=== PATIENT | female | born 1995 | race Caucasian/White ===

== ENCOUNTER 2017-05-30 08:02 | Emergency (ER) | payer MEDICAID, OTHER ==
[~2017-05-30] VITALS: Ht 162.6 cm; Wt 18.1 kg
--- NOTE | 2017-05-30 08:10 | NUR ---
A/OX4, C/O SUPRAPUBIC AREA PAIN, DYSURIA, URGENCY X LAST NIGHT. VSS NAD RR EVEN AND UNLABORED. PENDING ER MD EVALUATION
[2017-05-30 09:03] LABS: APPEARANCE,URINE SL CLOUDY (CLEAR); BILIRUBIN,URINE NEGATIVE (NEGATIVE); BLOOD, URINE 2+ Ery/uL (NEGATIVE); COLOR,URINE YELLOW (YELLOW); KETONES,URINE NEGATIVE (NEGATIVE); LEUKOCYTE ESTERASE ,URINE 1+ (NEGATIVE); NITRITE, URINE NEGATIVE (NEGATIVE); PROTEIN,URINE NEGATIVE (NEGATIVE); UGLUCOSE NEGATIVE (NEGATIVE); UROBILINOGEN,URINE 0.2 EU/dL (0.2)
--- NOTE | 2017-05-30 09:15 | NUR ---
PELVIC EXAM PERFORMED BY
[2017-05-30 09:25] LABS: BACTERIA,URINE Few /HPF (None Seen); SQUAMOUS EPITHELIAL CELL,UR Moderate /HPF (None Seen); WBC,URINE 21-50 /HPF (0-3)
[2017-05-30] MEDS ORDERED: LIDOCAINE /MPF 1% VIAL 5 ML VIAL ONE (10:18)
[2017-05-30] MEDS ORDERED: AZITHROMYCIN 250 MG TABLET ONE (10:18)
[2017-05-30] MEDS ORDERED: CEFTRIAXONE 1 G VIAL ONE (10:18)
--- NOTE | 2017-05-30 10:28 | NUR ---
Patient discharged to home in stable condition. Written and verbal after care instructions given. Patient verbalizes understanding of instruction.
[2017-05-30 10:30] VITALS: BP 131/76
[2017-05-30] MEDS ORDERED: AZITHROMYCIN 250 MG TABLET PO ONE (10:30)
[2017-05-30] MEDS ORDERED: CEFTRIAXONE 1 G VIAL IM ONE (10:30)
== END 2017-05-30 10:31 | disposition home or self-care (01) ==
LOC: ER 08:05
DX: R30.0 Dysuria (principal); N89.8 Other specified noninflammatory disorders of vagina
CPT/HCPCS: 81000-TC; 84703-TC; 87086-TC; 87186-TC; 87210-TC; 87491; 87591; A4606; J0696; J3490; Z7610

== ENCOUNTER 2017-06-12 19:54 | Emergency (ER) | payer OTHER ==
[~2017-06-12] VITALS: Ht 162.6 cm; Wt 70.3 kg
--- NOTE | 2017-06-12 20:02 | NUR ---
bb ems to er after a syncopal event during plasma donation
--- NOTE | 2017-06-12 20:03 | NUR ---
Kemal ACNP aware - report given
--- NOTE | 2017-06-12 20:03 | NUR ---
placed to ER 13
[2017-06-12 20:28] LABS: BASOPHILS # (AUTO) 0.1 /CMM (0.0-0.2); BASOPHILS % (AUTO) 0.5 % (0.0-2.0); EOSINOPHILS # (AUTO) 0.1 /CMM (0.0-0.7); EOSINOPHILS % (AUTO) 0.5 % (0.0-6.0); HEMATOCRIT 40 % (33-45); LYMPHOCYTES # (AUTO) 1.7 /CMM (0.8-4.8); LYMPHOCYTES % (AUTO) 10.8 % (20.0-44.0); MEAN CORPUSCULAR HEMOGLOBIN 30 PG (26.0-33.0); MEAN CORPUSCULAR HGB CONC 35 g/dl (31.0-36.0); MEAN CORPUSCULAR VOLUME 86 fL (82-100); MONOCYTES # (AUTO) 0.7 /CMM (0.1-1.30); MONOCYTES % (AUTO) 4.2 % (2.0-12.0); NEUTROPHILS # (AUTO) 13.3 /CMM (1.8-8.9); PLATELET COUNT (AUTO) 305 /CMM (150-450); RDW COEFFICIENT OF VARIATION 11.7 (11.5-15.0); RED BLOOD CELL COUNT(AUTO) 4.68 MIL/uL (4.0-5.2); WHITE BLOOD COUNT (AUTO) 15.9 K/uL (4.3-11.0)
--- NOTE | 2017-06-12 21:11 | NUR ---
Patient discharged to home in stable condition. Written and verbal after care instructions given. Patient verbalizes understanding of instruction.IV removed. Catheter intact and site benign. Pressure and 4x4 applied to site. No bleeding noted.
[2017-06-12 21:12] VITALS: BP 104/64
== END 2017-06-12 21:12 | disposition home or self-care (01) ==
LOC: ER 19:58
DX: R55 Syncope and collapse (principal)
CPT/HCPCS: 36415; 85025; 93005; 99285; A4606; Z7610

== ENCOUNTER 2017-11-17 17:29 | Emergency (ER) | payer OTHER ==
[~2017-11-17] VITALS: Ht 162.6 cm; Wt 62.6 kg
[2017-11-17 17:42] VITALS: BP 125/85
[2017-11-17] MEDS ORDERED: IBUPROFEN 600 MG TABLET PO ONE ×2 (18:19→18:30)
== END 2017-11-17 18:26 | disposition home or self-care (01) ==
LOC: ER 17:31
DX: J02.8 Acute pharyngitis due to other specified organisms (principal)
CPT/HCPCS: A4606; Z7610

== ENCOUNTER 2019-02-18 00:46 | Emergency (ER) | payer OTHER ==
[~2019-02-18] VITALS: Ht 162.6 cm; Wt 68.0 kg
[2019-02-18 00:48] VITALS: BP 123/83
[2019-02-18] MEDS ORDERED: IBUPROFEN 600 MG TABLET PO ONE ×2 (00:57→01:00)
--- NOTE | 2019-02-18 00:57 | NUR ---
PT MEDICATED WITH MOTRIN 600MG PO X1 NOW
--- NOTE | 2019-02-18 00:58 | NUR ---
Patient discharged to home in stable condition. Written and verbal after care instructions given. Patient verbalizes understanding of instruction. Pt ambulatory with a steady gait
== END 2019-02-18 01:00 | disposition home or self-care (01) ==
LOC: ER 00:48
DX: H66.91 Otitis media, unspecified, right ear (principal)

== ENCOUNTER 2019-06-24 11:59 | Emergency (ER) | payer OTHER ==
[~2019-06-24] VITALS: Ht 162.6 cm; Wt 61.2 kg
[2019-06-24 12:18] VITALS: BP 122/77
== END 2019-06-24 12:47 | disposition home or self-care (01) ==
LOC: ER 12:04
DX: R19.7 Diarrhea, unspecified (principal)

== ENCOUNTER 2021-04-13 11:04 | Emergency (ER) | payer OTHER ==
[~2021-04-13] VITALS: Ht 162.6 cm; Wt 78.9 kg
--- NOTE | 2021-04-13 11:14 | NUR ---
DR FIERRO AT BEDSIDE
--- NOTE | 2021-04-13 11:16 | NUR ---
BIBMOTHER C/O ABDOMINAL PAIN 02/07 STARTED THIS MORNING P/S 02/07, CURRENTLY IN MENSTRUAL CYCLE.
--- NOTE | 2021-04-13 11:21 | NUR ---
URINE COLLECTED AND SENT TO LAB
--- NOTE | 2021-04-13 11:29 | NUR ---
SALINE LOCK ESTABLISHED, BLOOD DRAWN AND SENT TO LAB
[2021-04-13 11:42] LABS: BASOPHILS # (AUTO) 0.1 K/uL (0.0-0.2); BASOPHILS % (AUTO) 0.7 % (0.0-2.0); EOSINOPHILS % (AUTO) 1.9 % (0.0-6.0); HEMATOCRIT 38 % (33-45); LYMPHOCYTES % (AUTO) 24.2 % (20.0-44.0); MEAN CORPUSCULAR HGB CONC 34 g/dl (31.0-36.0); MEAN CORPUSCULAR VOLUME 89 fL (82-100); MONOCYTES # (AUTO) 0.5 K/uL (0.1-1.30); MONOCYTES % (AUTO) 5.6 % (2.0-12.0); NEUTROPHILS # (AUTO) 5.7 K/uL (1.8-8.9); NEUTROPHILS % (AUTO) 67.6 % (43.0-81.0); PLATELET COUNT (AUTO) 285 K/uL (150-450); RED BLOOD CELL COUNT(AUTO) 4.26 MIL/uL (4.0-5.2); WHITE BLOOD COUNT (AUTO) 8.4 K/uL (4.3-11.0)
--- NOTE | 2021-04-13 11:56 | NUR ---
CHAPERONED AKHIL RAMOS DURING ULTRASOUND
[2021-04-13 12:05] LABS: BILIRUBIN,URINE NEGATIVE (NEGATIVE); COLOR,URINE YELLOW (YELLOW); LEUKOCYTE ESTERASE ,URINE SMALL (NEGATIVE); NITRITE, URINE NEGATIVE (NEGATIVE); PROTEIN,URINE 30 mg/dl (NEGATIVE); UGLUCOSE NEGATIVE (NEGATIVE); UROBILINOGEN,URINE 0.2 EU/dL (0.2)
[2021-04-13 12:08] LABS: ALANINE AMINOTRANSFERASE 31 U/L (12-78); ALBUMIN 3.9 g/dL (3.4-5.0); ALKALINE PHOSPHATASE 84 U/L (46-116); ASPARTATE AMINOTRANSFERASE 16 U/L (15-37); BILIRUBIN,DIRECT 0.1 mg/dL (0.0-0.2); BILIRUBIN,TOTAL 0.2 mg/dL (0.2-1.0); CALCIUM, SERUM 8.9 mg/dL (8.5-10.1); CARBON DIOXIDE 27 mmol/L (21-32); CHLORIDE 102 mmol/L (98-107); CREATININE 0.9 mg/dL (0.6-1.3); GLUCOSE 101 mg/dL (74-106); POTASSIUM 3.7 mmol/L (3.5-5.1); SODIUM SERUM 138 mmol/L (136-145); TOTAL PROTEIN, SERUM 7.8 g/dL (6.4-8.2); UREA NITROGEN, BLOOD 15 mg/dL (7-18)
[2021-04-13 12:19] LABS: BACTERIA,URINE Few /HPF (None Seen); RBC,URINE TOO NUMEROUS TO COUN /HPF (0-2); SQUAMOUS EPITHELIAL CELL,UR Moderate /HPF (None Seen)
--- NOTE | 2021-04-13 12:55 | NUR ---
WHEELED OUT VIA [facility] BY [facility] FOR CT SCAN
[2021-04-13] MEDS ORDERED: KETOROLAC TROMETHAMINE INJ 60 MG/2 ML VIAL IM ONE (13:00)
[2021-04-13] MEDS ORDERED: KETOROLAC TROMETHAMINE INJ 30 MG/ML VIAL ONE (13:22)
[2021-04-13] MEDS ORDERED: NAPR-1009 PO (13:51)
--- NOTE | 2021-04-13 14:00 | NUR ---
IV removed. Catheter intact and site benign. Pressure and 4x4 applied to site. No bleeding noted.Patient discharged to home in stable condition. Written and verbal after care instructions given. Patient verbalizes understanding of instruction.
[2021-04-13 14:01] VITALS: BP 123/67
== END 2021-04-13 14:01 | disposition home or self-care (01) ==
LOC: ER 11:05
DX: N83.201 Unspecified ovarian cyst, right side (principal)
CPT/HCPCS: 36415; 74176; 76856; 80048; 80076; 81001; 84702; 84703; 85025; 87086; 96372; 99284; J1885

== ENCOUNTER 2022-08-03 20:34 | Emergency (ER) | payer SELFPAY ==
[~2022-08-03] VITALS: Ht 162.6 cm; Wt 79.8 kg
[~2022-08-03 20:34] MED LIST: NAPR-1009 PO
--- NOTE | 2022-08-03 21:20 | NUR ---
Pt is noted alert, responsive as she came from home C/O Lower Mid Abdominal on and off pain [id number] with Nausea. Pt care continue as awaits MD orders.
--- NOTE | 2022-08-03 21:24 | NUR ---
URINE COLLECTED AND SENT TO LAB
[2022-08-03 22:03] LABS: BASOPHILS # (AUTO) 0.1 K/uL (0.0-0.2); BASOPHILS % (AUTO) 0.8 % (0.0-2.0); EOSINOPHILS % (AUTO) 1.9 % (0.0-6.0); HEMATOCRIT 41 % (33-45); HEMOGLOBIN 13.7 g/dL (11.5-14.8); LYMPHOCYTES # (AUTO) 3.5 K/uL (0.8-4.8); LYMPHOCYTES % (AUTO) 34.4 % (20.0-44.0); MEAN CORPUSCULAR HGB CONC 33 g/dl (31.0-36.0); MEAN CORPUSCULAR VOLUME 84 fL (82-100); MONOCYTES # (AUTO) 0.6 K/uL (0.1-1.30); MONOCYTES % (AUTO) 6.2 % (2.0-12.0); NEUTROPHILS # (AUTO) 5.8 K/uL (1.8-8.9); NEUTROPHILS % (AUTO) 56.7 % (43.0-81.0); PLATELET COUNT (AUTO) 321 K/uL (150-450); RED BLOOD CELL COUNT(AUTO) 4.87 MIL/uL (4.0-5.2); WHITE BLOOD COUNT (AUTO) 10.3 K/uL (4.3-11.0)
[2022-08-03] MEDS ORDERED: MAG HYDROX/AL HYDROX/SIMETH 30 ML UDC ONE (22:11)
[2022-08-03] MEDS ORDERED: LIDOCAINE VISCOUS 2% UD 15 ML UDC ONE (22:12)
--- NOTE | 2022-08-03 22:26 | NUR ---
Pt is been mediacted with Maalox 30mg PO and Lidocaine 15mg PO. Pt care continue.
[2022-08-03 22:29] LABS: BILIRUBIN,URINE NEGATIVE (NEGATIVE); COLOR,URINE YELLOW (YELLOW); LEUKOCYTE ESTERASE ,URINE 1+ (NEGATIVE); NITRITE, URINE NEGATIVE (NEGATIVE); PROTEIN,URINE NEGATIVE (NEGATIVE); UGLUCOSE NEGATIVE (NEGATIVE); UROBILINOGEN,URINE 0.2 EU/dL (0.2)
[2022-08-03] MEDS ORDERED: MAG HYDROX/AL HYDROX/SIMETH 30 ML UDC PO ONE (22:30)
[2022-08-03] MEDS ORDERED: LIDOCAINE VISCOUS 2% UD 15 ML UDC MM ONE (22:30)
[2022-08-03 22:39] LABS: BACTERIA,URINE 2+ /HPF (None Seen); RBC,URINE 0-2 /HPF (0-2); SQUAMOUS EPITHELIAL CELL,UR 21-50 /HPF (None Seen)
[2022-08-03 23:34] LABS: BILIRUBIN,DIRECT 0.1 mg/dL (0.0-0.2); BILIRUBIN,TOTAL 0.4 mg/dL (0.2-1.0); CALCIUM, SERUM 9.8 mg/dL (8.5-10.1); CREATININE 0.7 mg/dL (0.6-1.3); POTASSIUM 3.3 mmol/L (3.5-5.1)
[2022-08-03 23:35] LABS: ALBUMIN 4.6 g/dL (3.4-5.0)
[2022-08-03] MEDS ORDERED: OMEP20CA15 PO (23:49)
[2022-08-03] MEDS ORDERED: NITR100C6 PO (23:49)
[2022-08-04] VITALS: BP 112/75
--- NOTE | 2022-08-04 00:03 | NUR ---
Pt is been discharge to home with all discharge instructions given as pt is stable with no S/S off distress or C/O pain.
== END 2022-08-04 00:05 | disposition home or self-care (01) ==
LOC: ER 20:37
DX: N39.0 Urinary tract infection, site not specified (principal); R10.13 Epigastric pain
CPT/HCPCS: 36415; 80048-TC; 80076-TC; 81001; 83690-TC; 84703-TC; 85025-TC; 87086-TC

== ENCOUNTER 2023-05-08 22:43 | Emergency (ER) | payer OTHER ==
[~2023-05-08] VITALS: Ht 162.6 cm; Wt 77.6 kg
[~2023-05-08 22:43] MED LIST changes: +NITR100C6 PO; +OMEP20CA15 PO
[2023-05-08 23:58] VITALS: BP 109/81; TEMP 98.1
[2023-05-09 00:21] VITALS: O2SAT 100
== END 2023-05-09 00:22 | disposition home or self-care (01) ==
LOC: ER 22:48
DX: H92.01 Otalgia, right ear (principal)

== ENCOUNTER 2023-06-05 06:46 | Emergency (ER) | payer OTHER ==
[~2023-06-05] VITALS: Ht 162.6 cm; Wt 77.1 kg
[2023-06-05 07:36] VITALS: TEMP 98.2
[2023-06-05 08:11] LABS: APPEARANCE,URINE CLOUDY (CLEAR); BILIRUBIN,URINE 1+ (NEGATIVE); BLOOD, URINE TRACE-INTA Ery/uL (NEGATIVE); COLOR,URINE YELLOW (YELLOW); KETONES,URINE NEGATIVE (NEGATIVE); LEUKOCYTE ESTERASE ,URINE 2+ (NEGATIVE); NITRITE, URINE NEGATIVE (NEGATIVE); PROTEIN,URINE TRACE mg/dl (NEGATIVE); UGLUCOSE NEGATIVE (NEGATIVE)
[2023-06-05 08:12] LABS: ADD URINE CULTURE YES; BACTERIA,URINE Moderate /HPF (None Seen); RBC,URINE 0-2 /HPF (0-2); SQUAMOUS EPITHELIAL CELL,UR Rare /HPF (None Seen); WBC,URINE 21-50 /HPF (0-3)
[2023-06-05 08:13] LABS: PREGNANCY TEST URINE QUAL NEGATIVE (NEGATIVE)
[2023-06-05] MEDS ORDERED: CEPH250C PO (08:23)
[2023-06-05 08:30] VITALS: BP 121/74; O2SAT 100
== END 2023-06-05 08:31 | disposition home or self-care (01) ==
LOC: ER 06:46
DX: N39.0 Urinary tract infection, site not specified (principal); R10.2 Pelvic and perineal pain; Z79.899 Other long term (current) drug therapy
CPT/HCPCS: 81001; 84703-TC; 87086-TC

== ENCOUNTER 2024-09-07 16:47 | Emergency (ER) | payer OTHER ==
[~2024-09-07] VITALS: Ht 162.6 cm; Wt 84.8 kg
[~2024-09-07 16:47] MED LIST changes: +CEPH250C PO
[2024-09-07] MEDS ORDERED: IBUP-2608 PO (19:09)
[2024-09-07] MEDS ORDERED: AMOX200S9 PO (19:09)
[2024-09-07] MEDS ORDERED: ACET-2668 PO (19:09)
[2024-09-07] MEDS ORDERED: IBUP-1953 PO (19:11)
[2024-09-07 19:24] VITALS: BP 134/88; TEMP 208.6; O2SAT 97
== END 2024-09-07 19:25 | disposition home or self-care (01) ==
LOC: ER 16:47
DX: M25.512 Pain in left shoulder (principal); I10 Essential (primary) hypertension; Z79.899 Other long term (current) drug therapy; V43.52XA Car driver injured in collision with other type car in traffic accident, initial encounter; Y93.89 Activity, other specified; Y92.488 Other paved roadways as the place of occurrence of the external cause; Y99.8 Other external cause status
CPT/HCPCS: 73030-TC